=== PATIENT | female | born 1995 | race Two or more races ===

== ENCOUNTER 2020-03-02 23:58 | Inpatient (IN) | payer OTHER, MEDICAID ==
[~2020-03-02] VITALS: Ht 162.6 cm; Wt 62.6 kg
[2020-03-03] VITALS (14 sets, daily range): BP systolic 101–122; BP diastolic 52–81
--- NOTE | 2020-03-03 00:25 | Emergency Room Report ---
History of Present Illness General Chief Complaint: Behavioral Complaint Source: Patient Present Illness HPI Patient is a 24-year-old female brought in by EMS after reported overdose. Patient states that she took approximately 25 100 mg Zoloft tablets. Ingestion occurred approximately 1 hour prior to arrival. She also reports drinking alcohol. Denies any other medications. Patient had been placed on a 5150 hold by [employer]. Allergies: Coded Allergies: No Known Allergies (Unverified , 03/02/20) COVID-19 Screening COVID-19 risk:Contact w/high r: No COVID-19 risk:Travel to affect: No Has patient experienced shahid: No COVID-19 Testing performed TRAIN OPERATOR: No Patient History Past Medical History: see triage record Last Menstrual Period: 02/29/20 Now: No : 1 Para: 0 Reviewed Nursing Documentation: PMH: Agreed; PSxH: Agreed Nursing Documentation-PMH Past Medical History: No Stated History Review of Systems All Other Systems: negative except mentioned in HPI Physical Exam Vital Signs Date Time Temp Pulse Resp B/P (MAP) Pulse Ox O2 Delivery O2 Flow Rate FiO2 03/03/20 00:00 98.2 88 20 122/80 (94) 98 Room Air Sp02 EP Interpretation: reviewed, normal General Appearance: alert/responsive, no apparent distress, GCS 15, non-toxic Head: atraumatic Eyes: PERRL, lids + conjunctiva normal ENT: hearing intact, no angioedema Neck: supple/symm/no masses, no meningismus Respiratory: effort normal, no wheezing, chest symmetrical Cardiovascular: no edema, other - Tachycardia Cardiovascular #2: 2+ carotid (R), 2+ carotid (L), 2+ dorsalis pedis (R), 2+ dorsalis pedis (L) Gastrointestinal: non-tender, no mass, non-distended, no rebound/guarding, normal bowel sounds Musculoskeletal: gait & station normal, normal ROM, strength & tone normal, non -tender Neurologic: normal inspection, CN II-XII intact, oriented x3, sensory intact, normal speech Skin: no rash, well hydrated Lymphatic: normal inspection Procedures Critical Care Time Critical Care Time Patient had a critical medical condition which untreated could potentially result in life or limb threatening injury. Total critical care time excluding procedures approximately 45 minutes. Medical Decision Making Diagnostic Impression: Primary Impression: Medication overdose Additional Impression: Suicidal behavior with attempted self-injury ER Course Patient presented for medication overdose. Differential diagnosis include was not limited to suicide attempt, serotonin syndrome, arrhythmia, electrolyte abnormality, alcohol tox occasion among others. Because of complexity of patient's case laboratory tests and imaging studies were ordered. EKG interpreted by me showed sinus tachycardia with a rate of 108 with QTC of 466. Patient started on IV fluids. Poison control was contacted for assistance with management. She was noted to have some initial tachycardia. Subsequently developed some increased muscle tremors and was given IV magnesium as well as Ativan and cyproheptadine.Poison control recommendations patient will be continued on Ativan intermittently as needed for agitation. She was given IV fluids fluids and did have some slight improvement tachycardia. Dr. Estella Nguyễn was contacted for inpatient management due to panel physician. Patient will be admitted to ICU for further monitoring Labs Test 03/03/20 00:32 03/03/20 00:40 White Blood Count 11.0 K/UL (4.8-10.8) Red Blood Count 4.98 M/UL (4.20-5.40) Hemoglobin 15.6 G/DL (12.0-16.0) Hematocrit 43.6 % (37.0-47.0) Mean Corpuscular Volume 88 FL (80-99) Mean Corpuscular Hemoglobin 31.4 PG (27.0-31.0) Mean Corpuscular Hemoglobin Concent 35.8 G/DL (32.0-36.0) Red Cell Distribution Width 10.4 % (11.6-14.8) Platelet Count 275 K/UL (150-450) Mean Platelet Volume 5.6 FL (6.5-10.1) Neutrophils (%) (Auto) 62.1 % (45.0-75.0) Lymphocytes (%) (Auto) 27.8 % (20.0-45.0) Monocytes (%) (Auto) 8.4 % (1.0-10.0) Eosinophils (%) (Auto) 0.6 % (0.0-3.0) Basophils (%) (Auto) 1.1 % (0.0-2.0) Sodium Level 136 MMOL/L (136-145) Potassium Level 4.2 MMOL/L (3.5-5.1) Chloride Level 101 MMOL/L (98-107) Carbon Dioxide Level 18 MMOL/L (21-32) Anion Gap 17 mmol/L (5-15) Blood Urea Nitrogen 11 mg/dL (7-18) Creatinine 0.7 MG/DL (0.55-1.30) Estimat Glomerular Filtration Rate > 60 mL/min (>60) Glucose Level 129 MG/DL (74-106) Calcium Level 9.0 MG/DL (8.5-10.1) Total Bilirubin 0.5 MG/DL (0.2-1.0) Aspartate Amino Transf (AST/SGOT) 36 U/L (15-37) Alanine Aminotransferase (ALT/SGPT) 19 U/L (12-78) Alkaline Phosphatase 80 U/L (46-116) Total Protein 9.1 G/DL (6.4-8.2) Albumin 4.4 G/DL (3.4-5.0) Globulin 4.7 g/dL Albumin/Globulin Ratio 0.9 (1.0-2.7) Salicylates Level 1.1 ug/mL (2.8-20) Acetaminophen Level < 2 MCG/ML (10-30) Serum Alcohol 33 mg/dL Urine Color Pale yellow Urine Appearance Clear Urine pH 6 (4.5-8.0) Urine Specific [place] 1.010 (1.005-1.035) Urine Protein 1+ (NEGATIVE) Urine Glucose (UA) Negative (NEGATIVE) Urine Ketones Negative (NEGATIVE) Urine Blood 3+ (NEGATIVE) Urine Nitrite Negative (NEGATIVE) Urine Bilirubin Negative (NEGATIVE) Urine Urobilinogen Normal MG/DL (0.0-1.0) Urine Leukocyte Esterase 1+ (NEGATIVE) Urine RBC 2-4 /HPF (0 - 2) Urine WBC 2-4 /HPF (0 - 2) Urine Squamous Epithelial Cells Few /LPF (NONE/OCC) Urine Bacteria Few /HPF (NONE) Urine HCG, Qualitative Negative (NEGATIVE) Urine Opiates Screen Negative (NEGATIVE) Urine Barbiturates Screen Negative (NEGATIVE) Phencyclidine (PCP) Screen Negative (NEGATIVE) Urine Amphetamines Screen Negative (NEGATIVE) Urine Benzodiazepines Screen Negative (NEGATIVE) Urine Cocaine Screen Negative (NEGATIVE) Urine Marijuana (THC) Screen Negative (NEGATIVE) EKG Diagnostic Results Rate: tachycardiac Rhythm: NSR ST Segments: other - QTC 466 Last Vital Signs Date Time Temp Pulse Resp B/P (MAP) Pulse Ox O2 Delivery O2 Flow Rate FiO2 03/03/20 00:00 98.2 88 20 122/80 (94) 98 Room Air Status: unchanged Disposition: ADMITTED INPATIENT Scripts No Active Prescriptions or Reported Meds Referrals: NOT CHOSEN IPA/,REFERRING (PCP) Brigido Villalobos MD March 03, 2020 00:24
--- NOTE | 2020-03-03 00:42 | NUR ---
ED Nurse Note: Pt brought in by LENKA from home, pt placed on a 5150 for taking unknown amount of Zoloft intentionally, pt is A&Ox4, withdrawn, VSS, poison control called, instructed to place pt on environmental monitoring specialist. Suicide precautions taken, pt is visible area away from harmful objects, will continue to monitor
[2020-03-03 00:49] LABS: BASOPHILS % (AUTO) 1.1 % (0.0-2.0); EOSINOPHILS % (AUTO) 0.6 % (0.0-3.0); HEMATOCRIT 43.6 % (37.0-47.0); HEMOGLOBIN 15.6 G/DL (12.0-16.0); LYMPHOCYTES % (AUTO) 27.8 % (20.0-45.0); MEAN CORPUSCULAR VOLUME 88 FL (80-99); MONOCYTES % (AUTO) 8.4 % (1.0-10.0); NEUTROPHILS % (AUTO) 62.1 % (45.0-75.0); PLATELET COUNT 275 K/UL (150-450); RED BLOOD COUNT 4.98 M/UL (4.20-5.40); RED CELL DISTRIBUTION WIDTH 10.4 % (11.6-14.8)
[2020-03-03 00:50] LABS: APPEARANCE,URINE CLEAR; BILIRUBIN, URINE NEGATIVE (NEGATIVE); COLOR,URINE PALE YELLOW; GLUCOSE, URINE (UA) NEGATIVE (NEGATIVE); KETONES,URINE NEGATIVE (NEGATIVE); LEUKOCYTE ESTERASE ,URINE 1+ (NEGATIVE); NITRITE,URINE NEGATIVE (NEGATIVE); PH,URINE 6 (4.5-8.0); PROTEIN,URINE 1+ (NEGATIVE); UROBILINOGEN,URINE NORMAL MG/DL (0.0-1.0)
[2020-03-03 00:59] LABS: ANION GAP 17 mmol/L (5-15); BLOOD UREA NITROGEN 11 mg/dL (7-18); CARBON DIOXIDE 18 MMOL/L (21-32); CHLORIDE 101 MMOL/L (98-107); CREATININE 0.7 MG/DL (0.55-1.30); POTASSIUM 4.2 MMOL/L (3.5-5.1); SODIUM 136 MMOL/L (136-145)
[2020-03-03 01:04] LABS: ALANINE AMINOTRANSFERASE 19 U/L (12-78); ALBUMIN 4.4 G/DL (3.4-5.0); ALBUMIN/GLOBULIN RATIO 0.9 (1.0-2.7); ALKALINE PHOSPHATASE 80 U/L (46-116); ASPARTATE AMINO TRANSFERASE 36 U/L (15-37); BILIRUBIN,TOTAL 0.5 MG/DL (0.2-1.0)
--- NOTE | 2020-03-03 01:27 | NUR ---
ED Nurse Note: Belongings placed in locker 3
[2020-03-03] MEDS ORDERED: LORazepam Inj 2mg/ml 1ml IV ONE (01:30)
[2020-03-03] MEDS: Cyproheptadine HCl 4mg tab ORAL ONE ×2 (01:35→01:45)
[2020-03-03] MEDS: D5 1/2NS w/KCl 20mEq 1,000 ML IV SCH ×3 (03:23→15:57)
--- NOTE | 2020-03-03 03:29 | NUR ---
ED Nurse Note: Patient is sleeping soundly but easily arousable. ERMd informed of increasing heart rate. IV fluids withn potassiumn additive hung, repeat labs to be performed shortly, will continue to monitor for transport to ICU.
--- NOTE | 2020-03-03 05:10 | NUR ---
TRANSFER TO FLOOR: Patient transferred to as ordered, per Dr Tobar. Report given to HERACLIO Juan. Belongings and medications given to . Family and or S/O informed of transfer.
--- NOTE | 2020-03-03 05:35 | NUR ---
NURSE NOTES: Received report from HERACLIO Kennedy at 0427. patient arrived to ICU via gurney. patient awake alert oriented x4. respirations even and unlabored on room air oxygen saturation 98%. right Wrist # 20 and left Forearm #20 clean, intact, and patent. patient states lower abdomen cramping pain due to menstruation. patient stated self inflicted skin lacerations on right wrist and left thigh, reddened and scabbed. patient declined to answer suicidal ideation at this time. patient belongings including iphone 8 and spud sorter at bedside. paged Dr. Tobar for admitting orders. message left. awaiting call back.
--- NOTE | 2020-03-03 06:00 | NUR ---
NURSE NOTES: paged Dr. Tobar for a second time for admitting orders. message left. awaiting call back.
--- NOTE | 2020-03-03 06:41 | NUR ---
NURSE NOTES: Paged Dr. Tobar for third time regarding admitting orders. message left. awaiting call back.
--- NOTE | 2020-03-03 07:10 | NUR ---
NURSE NOTES: Received bedside report from HERACLIO Nicole. Patient is asleep in bed, easily arousable to verbal stimuli. Patient is alert, oriented to name, place, time, and purpose. Patient is on room air, saturating 97%, no respiratory distress noted at this time. Patient is on cont. cardiac cath lab manager showing sinus tachycardia with HR of 146. Patient has a peripheral IV on right wrist 20g saline lock; and left forearm 20g infusing 1/2 NS with 20mEq of KCL. Denies pain at this time. Patient has multiple superficial lacerations on right wrist and left thigh, otherwise no open/pressure wounds. Patient denies suicidal ideation at this time. Safety precautions in place, bed is locked, alarmed, and in lowest position, side rails up x2, and call light left within reach. Instructed to call for assistance, verbalized understanding. Patient is in visible area from nurse's station for close monitoring, no sharps/harmful objects within reach. Still awaiting for Dr Tobar's call back for admitting orders. Will continue to monitor patient.
--- NOTE | 2020-03-03 07:13 | NUR ---
HAND-OFF: Report given to HERACLIO Bermudez.
--- NOTE | 2020-03-03 07:39 | NUR ---
NURSE NOTES: Contacted Dr Tobar for admitting orders. Awaiting for call back/response.
[2020-03-03 09:05] LABS: HEMATOCRIT 36.6 % (37.0-47.0); HEMOGLOBIN 13.2 G/DL (12.0-16.0); MEAN CORPUSCULAR VOLUME 89 FL (80-99); PLATELET COUNT 226 K/UL (150-450); RED CELL DISTRIBUTION WIDTH 10.3 % (11.6-14.8)
--- NOTE | 2020-03-03 09:15 | NUR ---
NURSE NOTES: Dr Sands present in the unit; made rounds, seen patient, and updated on patient's condition. No new verbal orders received at this time, pending lab results. Patient is awake at this time, denies pain/discomfort. Patient denies suicidal ideations. IV on right wrist intact, IV on left FA 20g intact, infusing 1/2 NS with 20mEq of potassium. Patient remains tachycardic on the monitor, HR 136. Temperature 99.4. Offered patient breakfast, states she is not hungry at this time. Food on the bedside table. Patient remains on room air, no distress noted at this time. Safety precautions observed, bed locked, alarmed, and in lowest position, side rails up x3, and call light within reach. No harmful/sharp objects within reach. All needs attended to. Will continue to monitor.
[2020-03-03 09:17] LABS: ANION GAP 17 mmol/L (5-15); BLOOD UREA NITROGEN 7 mg/dL (7-18); CALCIUM 7.7 MG/DL (8.5-10.1); CARBON DIOXIDE 18 MMOL/L (21-32); CHLORIDE 104 MMOL/L (98-107); POTASSIUM 4.1 MMOL/L (3.5-5.1); SODIUM 138 MMOL/L (136-145)
[2020-03-03 09:30] LABS: ALANINE AMINOTRANSFERASE 15 U/L (12-78); ALBUMIN 3.5 G/DL (3.4-5.0); ALKALINE PHOSPHATASE 58 U/L (46-116); ASPARTATE AMINO TRANSFERASE 18 U/L (15-37); BILIRUBIN,TOTAL 0.4 MG/DL (0.2-1.0); PHOSPHORUS 2.3 MG/DL (2.5-4.9)
--- NOTE | 2020-03-03 09:30 | NUR ---
NURSE NOTES: ball worker at bedside.
--- NOTE | 2020-03-03 09:44 | NUR ---
NURSE NOTES: Called and spoke with Dr Lane per Dr Tobar's instruction to get Ativan order. No new orders received from Dr Lane at this time; stated he wants to see the patient/assess first. Patient remains awake, alert, and oriented x4. No s/s of distress at this time. Will continue to monitor.
--- NOTE | 2020-03-03 09:55 | Consultation ---
Consult Note Consult Note I am asked to evaluate the patient at the request of Dr. Tobar. Patient seen in intensive care unit room D at 9:15 AM. Discussed with HERACLIO Bermudez. Patient is 24-year-old female who was brought in by EMS after reported overdose. On questioning the patient in ICU she states that she took 25 pills of Zoloft 100 mg and at the same time patient drank some vodka however 15 minutes later she vomited but she does not know the pills that she took was in her vomitus or not. Patient had been placed on 5150 hold by [employer] On examination patient is alert and oriented claims to be sleepy but she appears to be alert Pulse is 1 30-1 40 regular blood pressure 110 systolic respiratory rate 18 patient is afebrile Not in any distress Not icteric Normocephalic Lung clear Heart tachycardic Abdomen soft No edema Laboratory results reviewed . Assessment/Plan Medication overdose Suicidal behavior with attempted self injury Plan Vigorous hydration Monitor electrolytes Sinus tachycardia should be addressed by application infrastructure engineer Discussed with HERACLIO Continue per consultants Babak Sands MD March 03, 2020 09:55
--- NOTE | 2020-03-03 10:08 | NUR ---
NURSE NOTES: Assisted patient to bedside commode, patient noted to have steady gait. No dizziness/weakness noted. Patient safely assisted back to bed after toileting. Patient voided. Patient denies pain/distress at this time. Will continue to monitor.
--- NOTE | 2020-03-03 10:32 | NUR ---
NURSE NOTES: Dr Michel present in the unit, seen patient, new orders received. EKG done, results showed to Dr Michel. Ok to transfer patient to med/surg with sitter. Will enter orders and will carry out.
--- NOTE | 2020-03-03 11:25 | NUR ---
LOG SKIDDER NOTE SW met w/ pt to assess suicide/abuse/neglect. Pt presents as A&O 4x and depressed. Pt resides alone at [address] [place] [address], [place] [address]. Pt is single, never , unemployed and has no children. Pt currently denies SI but admits 5150 incident. Per pt, this is the first SA. PT denies abuse/neglect/any physical altercation. Pt reports her current stressors are some problems w/ boyfriend. PT has hx of Depression diagnosed in 2018. Pt participated outpatient [facility] program a year ago. Pt currently does not receive outpatient [facility]. Pt is wiling to go to outpatient services upon DC. This SW will schedule the appt when DC date is determined and will continue to assess SI. Psych Consult to F/U. Emergency contacts: Carolee (sister) [phone] and Carlos Mora (boyfriend) [phone]
--- NOTE | 2020-03-03 11:43 | NUR ---
NURSE NOTES: Dr De present at bedside, seen patient with new orders received. Will enter and will carry out. Patient remains aox4, in no distress. Denies SI at this time. Assisted patient to commode. Will continue to monitor patient.
--- NOTE | 2020-03-03 11:52 | Cardiac Electrophysiology PN ---
Subjective Subjective [id number] Objective Last 24 Hour Vital Signs Date Time Temp Pulse Resp B/P (MAP) Pulse Ox O2 Delivery O2 Flow Rate FiO2 03/03/20 10:00 157 23 113/59 (77) 97 03/03/20 09:00 139 21 119/52 (74) 97 03/03/20 08:00 Room Air 03/03/20 08:00 99.4 143 18 115/55 (75) 97 03/03/20 08:00 143 03/03/20 07:00 147 20 107/57 (74) 96 03/03/20 06:00 99.5 143 19 112/56 (74) 98 03/03/20 05:36 Room Air 03/03/20 05:10 98.2 143 30 119/82 99 Room Air 03/03/20 04:00 98.2 143 30 119/81 99 Room Air 03/03/20 02:19 98.0 129 23 122/80 99 Room Air 03/03/20 00:38 98.2 88 20 122/80 98 Room Air 03/03/20 00:38 88 20 Room Air 03/03/20 00:00 98.2 88 20 122/80 (94) 98 Room Air Intake and Output 03/02/20 03/03/20 19:00 07:00 Intake Total 200 ml Balance 200 ml IV Total 200 ml # Voids 1 Laboratory Tests Test 03/03/20 00:32 03/03/20 00:40 03/03/20 08:44 03/03/20 08:45 White Blood Count 11.0 K/UL (4.8-10.8) H 14.0 K/UL (4.8-10.8) H Red Blood Count 4.98 M/UL (4.20-5.40) 4.10 M/UL (4.20-5.40) L Hemoglobin 15.6 G/DL (12.0-16.0) 13.2 G/DL (12.0-16.0) Hematocrit 43.6 % (37.0-47.0) 36.6 % (37.0-47.0) L Mean Corpuscular Volume 88 FL (80-99) 89 FL (80-99) Mean Corpuscular Hemoglobin 31.4 PG (27.0-31.0) H 32.2 PG (27.0-31.0) H Mean Corpuscular Hemoglobin Concent 35.8 G/DL (32.0-36.0) 36.0 G/DL (32.0-36.0) Red Cell Distribution Width 10.4 % (11.6-14.8) L 10.3 % (11.6-14.8) L Platelet Count 275 K/UL (150-450) 226 K/UL (150-450) Mean Platelet Volume 5.6 FL (6.5-10.1) L 5.3 FL (6.5-10.1) L Neutrophils (%) (Auto) 62.1 % (45.0-75.0) % (45.0-75.0) Lymphocytes (%) (Auto) 27.8 % (20.0-45.0) % (20.0-45.0) Monocytes (%) (Auto) 8.4 % (1.0-10.0) % (1.0-10.0) Eosinophils (%) (Auto) 0.6 % (0.0-3.0) % (0.0-3.0) Basophils (%) (Auto) 1.1 % (0.0-2.0) % (0.0-2.0) Sodium Level 136 MMOL/L (136-145) 138 MMOL/L (136-145) Potassium Level 4.2 MMOL/L (3.5-5.1) 4.1 MMOL/L (3.5-5.1) Chloride Level 101 MMOL/L (98-107) 104 MMOL/L (98-107) Carbon Dioxide Level 18 MMOL/L (21-32) L 18 MMOL/L (21-32) L Anion Gap 17 mmol/L (5-15) H 17 mmol/L (5-15) H Blood Urea Nitrogen 11 mg/dL (7-18) 7 mg/dL (7-18) Creatinine 0.7 MG/DL (0.55-1.30) 1.0 MG/DL (0.55-1.30) Estimat Glomerular Filtration Rate > 60 mL/min (>60) > 60 mL/min (>60) Glucose Level 129 MG/DL (74-106) H 166 MG/DL (74-106) H Calcium Level 9.0 MG/DL (8.5-10.1) 7.7 MG/DL (8.5-10.1) L Total Bilirubin 0.5 MG/DL (0.2-1.0) 0.4 MG/DL (0.2-1.0) Aspartate Amino Transf (AST/SGOT) 36 U/L (15-37) 18 U/L (15-37) Alanine Aminotransferase (ALT/SGPT) 19 U/L (12-78) 15 U/L (12-78) Alkaline Phosphatase 80 U/L (46-116) 58 U/L (46-116) Total Protein 9.1 G/DL (6.4-8.2) H 7.0 G/DL (6.4-8.2) Albumin 4.4 G/DL (3.4-5.0) 3.5 G/DL (3.4-5.0) Globulin 4.7 g/dL 3.5 g/dL Albumin/Globulin Ratio 0.9 (1.0-2.7) L 1.0 (1.0-2.7) Salicylates Level 1.1 ug/mL (2.8-20) L Acetaminophen Level < 2 MCG/ML (10-30) L Serum Alcohol 33 mg/dL Urine Color Pale yellow Urine Appearance Clear Urine pH 6 (4.5-8.0) Urine Specific [place] 1.010 (1.005-1.035) Urine Protein 1+ (NEGATIVE) H Urine Glucose (UA) Negative (NEGATIVE) Urine Ketones Negative (NEGATIVE) Urine Blood 3+ (NEGATIVE) H Urine Nitrite Negative (NEGATIVE) Urine Bilirubin Negative (NEGATIVE) Urine Urobilinogen Normal MG/DL (0.0-1.0) Urine Leukocyte Esterase 1+ (NEGATIVE) H Urine RBC 2-4 /HPF (0 - 2) H Urine WBC 2-4 /HPF (0 - 2) Urine Squamous Epithelial Cells Few /LPF (NONE/OCC) Urine Bacteria Few /HPF (NONE) Urine HCG, Qualitative Negative (NEGATIVE) Urine Opiates Screen Negative (NEGATIVE) Urine Barbiturates Screen Negative (NEGATIVE) Phencyclidine (PCP) Screen Negative (NEGATIVE) Urine Amphetamines Screen Negative (NEGATIVE) Urine Benzodiazepines Screen Negative (NEGATIVE) Urine Cocaine Screen Negative (NEGATIVE) Urine Marijuana (THC) Screen Negative (NEGATIVE) Arterial Blood pH 7.381 (7.350-7.450) Arterial Blood Partial Pressure CO2 24.7 mmHg (35.0-45.0) *L Arterial Blood Partial Pressure O2 124.2 mmHg (75.0-100.0) H Arterial Blood HCO3 14.3 mmol/L (22.0-26.0) *L Arterial Blood Oxygen Saturation 98.1 % (95-100) Arterial Blood Base Excess -8.9 (-2-2) L Joon Test Positive Differential Total Cells Counted 100 Neutrophils % (Manual) 85 % (45-75) H Lymphocytes % (Manual) 8 % (20-45) L Monocytes % (Manual) 7 % (1-10) Eosinophils % (Manual) 0 % (0-3) Basophils % (Manual) 0 % (0-2) Band Neutrophils 0 % (0-8) Platelet Estimate Adequate Platelet Morphology Normal Red Blood Cell Morphology Normal Uric Acid 2.7 MG/DL (2.6-7.2) Phosphorus Level 2.3 MG/DL (2.5-4.9) L Magnesium Level 1.6 MG/DL (1.8-2.4) L C-Reactive Protein, Quantitative < 0.4 mg/dL (0.00-0.90) Thyroid Stimulating Hormone (TSH) 0.441 uiU/mL (0.358-3.740) Jose De MD March 03, 2020 11:52
[2020-03-03] MEDS ORDERED: Docusate 100mg cap ORAL SCH (13:00)
[2020-03-03] MEDS ORDERED: Phospha 250 Neutral tab ORAL SCH (13:00)
[2020-03-03] MEDS ORDERED: D5 1/2NS w/KCl 20mEq 1,000 ML IV SCH (14:00)
--- NOTE | 2020-03-03 14:00 | NUR ---
NURSE NOTES: Patient called for assistance to bedside commode. No BM at this time, patient voided. Assisted patient back to bed safely. IV on left forearm intact and patent, Magnesium infusing and D5 1/5 NS with 20mEq infusing at 100ml/hr. Patient remains on room air, no distress at this time. Patient denies SI. Safety precautions in place. No sharps/harmful objects within reach. Bed is locked, alarmed, and in lowest position, side rails up x3, and call light left within reach. Will continue to monitor.
--- NOTE | 2020-03-03 14:49 | NUR ---
CASE MANAGEMENT: REVIEW 24 YEAR OLD FEMALE CC: INGESTING UNKNOWN AMOUNT OF ZOLOFT SI: DRUG OVERDOSE . SUICIDAL BEHAVIOR WITH ATTEMPTED SELF INJURY T 98.2 HR 129 RR 23 BP 122/80 SAT 98% ROOM AIR TOX: SALICYLATES 1.1 ACETAMINOPHEN <2 SERUM ALCOHOL 33 IS: NS IVF BOLUS X1 CYPROHEPTADINE PO X1 MAG SULFATE IV X1 ATIVAN IV X1 1:1 SITTER PATIENT ADMITTED TO ICU 03/03/2020 DCP: PATIENT IS FROM HOME
--- NOTE | 2020-03-03 14:57 | NUR ---
INSURANCE ALL CLINICALS AND REVIEWS FAXED TO MATEO BRUNER [phone] FAX [phone] Addendum: 03/03/20 at 1612 by ADI JUDGE *-* INSURANCE *-* ALL CLINICALS AND REVIEWS HAVE BEEN FAXED TO: [facility] Ref#[id number] #[phone] fax#[phone]
--- NOTE | 2020-03-03 15:00 | NUR ---
TRANSFER TO FLOOR: Patient transferred to med/surg room 321-2, per Dr Michel. Shimon Bernardo CNA at bedside. Report given to HERACLIO Houston. Belongings remained at bedside, medications given to HERACLIO Houston. Endorsed plan of care.
--- NOTE | 2020-03-03 15:09 | NUR ---
NURSE NOTES: Patient arrived to unit at 1500 via bed, transferred from ICU. Patient is awake and oriented, ambulatory with steady gait. Belongings checked at bedside. IV's intact, patent, running IVF and Mag per order. Patient's refusing SCD's. Patient on 5150 hold, hold is in chart. Shimon Bernardo at bedside. Patient updated on plan of care. Side rails upx2, bed low and locked, call light within reach. Addendum: 03/03/20 at 1731 by Rosemarie Colindres RN NURSE NOTES: Edit: Patient is not on 5150 hold.
--- NOTE | 2020-03-03 15:10 | NUR ---
NURSE NOTES: No skin issues noted on arrival to unit except for multiple lacerations to right wrist and forearm. No signs of infection or acute bleeding noted.
--- NOTE | 2020-03-03 15:15 | NUR ---
*-* INSURANCE *-* UPDATED CLINICALS HAVE BEEN FAXED TO: [facility] Ref#[id number] #[phone] fax#[phone] & KANNAN MCMILLAN CM:DENVER Jamison: [phone] Addendum: 03/04/20 at 1541 by ADI JUDGE CM ALL CLINICALS HAVE BEEN RE-FAXED IT DEPARTMENT CANCELLED ALL FAXES CUED IN FAX MACHINE
[2020-03-03] MEDS: Docusate 100mg cap ORAL SCH (17:27)
[2020-03-03] MEDS: Phospha 250 Neutral tab ORAL SCH (17:27)
--- NOTE | 2020-03-03 18:00 | Consultation ---
DATE OF CONSULTATION: 03/03/2020 PULMONARY CONSULTATION/ICU CONSULTATION HISTORY OF PRESENT ILLNESS: This is a 24-year-old female who admitted taking 25 tablets of 100 mg each of Zoloft. She also reportedly drinking alcohol. She was placed on 5150 and placed in the ER and then in ICU. Currently, she is awake and responsive. She has had breakfast. She does not show any signs of respiratory distress. She is awake and comfortable, unable to provide a clear history. She states she was unhappy and she took the pills. She states she is no longer suicidal. PAST MEDICAL HISTORY: Depression. ALLERGIES: None. HOME MEDICATIONS: Zoloft. REVIEW OF SYSTEMS: Denies any headaches, hematemesis, melena, hematochezia, night sweats, or weight loss. PHYSICAL EXAMINATION: GENERAL: Reveals a female. VITAL SIGNS: Blood pressure is 113/50, heart rate 126, respirations are 20, afebrile, O2 saturation 97% room air. HEENT: Unremarkable. LUNGS: Clear breath sounds bilaterally. ABDOMEN: Soft. EXTREMITIES: There is no edema. LABORATORY DATA: Lab testing shows white count [id number], otherwise normal CBC and BMP. Toxicology positive for alcohol. Urinalysis negative. ABG shows pH 7.38, pCO2 24, pO2 124. IMPRESSION: 1. Drug overdose. 2. Suicidal ideation, now resolved. 3. Leukocytosis. DISCUSSION: The patient is doing well clinically. She has sinus tachycardia on EKG. We will hydrate, keep bedside sitter, await psych consultation. We will transfer to med/surg with sitter. Kimani Michel M.D. DR: Soren JOB#: [id number] CC:
--- NOTE | 2020-03-03 19:45 | NUR ---
HAND-OFF: Report given to Natalie PULLIAM.
--- NOTE | 2020-03-03 19:46 | NUR ---
NURSE NOTES: Received report & pt from HERACLIO Houston. Pt lying in bed, a&ox4, in room air. No s/s of acute distress & no c/o pain. IV site intact with IVF running as ordered. Shimon Chow at bedside. Plan of care discussed.
[2020-03-03] MEDS ORDERED: LORazepam Inj 2mg/ml 1ml IV PRN (20:15)
[2020-03-03] MEDS ORDERED: Metoprolol Tartrate 12.5mg TAB ORAL SCH (21:00)
[2020-03-03] MEDS: Metoprolol Tartrate 12.5mg TAB ORAL SCH (21:48)
--- NOTE | 2020-03-03 22:00 | Consultation ---
DATE OF CONSULTATION: 03/03/2020 CARDIOLOGY CONSULTATION CONSULTING PHYSICIAN: Jose De MD REFERRING PHYSICIAN: Estella Tobar MD REASON FOR CONSULTATION: Tachycardia. HISTORY OF PRESENT ILLNESS: The patient is a 24-year-old lady who has a history of depression, was brought in by paramedics after overdose of 25 pills of Zoloft at 100 mg. The patient also drank some vodka; however, 15 minutes later she vomited and does not remember if the pills were in the vomitus or not. The patient was put on 5150 hold by [employer]. The patient was at 130 to 140s and was admitted to intensive care unit. At the time of my evaluation, the patient was still tachycardic, but heart rate in the 110 to 120s, and denies any chest pain or shortness of breath. She states that she has planned to commit suicide for a long time. REVIEW OF SYSTEMS: Review of systems was negative other than what is mentioned in the history of present illness. PAST MEDICAL HISTORY: As mentioned above. FAMILY HISTORY: Noncontributory. SOCIAL HISTORY: She lives at home. Denies doing drugs alcohol. PHYSICAL EXAMINATION: VITAL SIGNS: Show blood pressure of 109/54, pulse was 157, currently 110, respirations 18, and she is afebrile. HEAD AND NECK: Shows no JVD. LUNGS: Clear. CARDIOVASCULAR: Shows tachycardic, S1 and S2, with no gallop or murmur. ABDOMEN: Soft. EXTREMITIES: No pitting edema. LABORATORY DATA: Labs show white count of 14, hemoglobin 13.2, hematocrit 36, and platelet count is 226. Sodium 138, potassium 4.1, BUN of 7, creatinine 1, and glucose of 166. Urine toxicology screen was negative. ASSESSMENT AND PLAN: 1. Tachycardia due to sinus tachycardia with no evidence of atrial fibrillation. Heart rate was up to 160s. We will get an echocardiogram. We will check a thyroid function test for further evaluation, but it is likely due to drug overdose. 2. Status post drug overdose. Further evaluation by Psychiatry. The patient was off 5150, followed by Dr. Tobar. 3. History of depression. Thank you very much for allowing me to participate in the care of this patient. Please do not hesitate to contact me for any questions regarding my evaluation. Jose De M.D. DR: Js JOB#: [id number] CC:
[2020-03-04] VITALS: BP 105/66
[2020-03-04] MEDS: D5 1/2NS w/KCl 20mEq 1,000 ML IV SCH ×2 (00:32→11:35)
--- NOTE | 2020-03-04 01:00 | History and Physical Report ---
DATE OF ADMISSION: 03/03/2020 HISTORY OF PRESENT ILLNESS: Basically, the patient came in because of overdosing the medications. The patient basically took Zoloft. The patient approximately took 25 of 100 mg Zoloft. The patient also had some borderline tachycardia and acidosis, was given Ativan, magnesium, and cyproheptadine for the possible serotonin syndrome and was admitted to intensive care unit. The patient was essentially symptom-free, who was stable. Upon admission, did not complain of anything, did not have any headaches, was alert and oriented. The patient was placed on hold by the [employer]. The patient is admitted for monitoring. Again, the patient did not have any significant symptoms, was asymptomatic with normal vital signs. Upon admission to the ICU, the patient also was alert and oriented. The patient is fairly young as well. PAST MEDICAL HISTORY: GERD and depression. PAST SURGICAL HISTORY: None. MEDICATIONS: Zoloft. FAMILY HISTORY: Noncontributory. ALLERGIES: None. SOCIAL HISTORY: Denies history of smoking. Does drink alcohol. Denies history of drug abuse. REVIEW OF SYSTEMS: HEENT: Denies headaches. PULMONARY: Denies shortness of breath and cough. CARDIOVASCULAR: Denies chest pain. GASTROINTESTINAL: Denies nausea, vomiting, or diarrhea. EXTREMITIES: Denies pain. CENTRAL NERVOUS SYSTEM: Denies change in speech pattern. PHYSICAL EXAMINATION: VITAL SIGNS: Temperature is 98.2, pulse is 124, blood pressure 118/63. HEENT: PERRLA. CHEST: Clear to auscultation. CARDIOVASCULAR: Tachycardic. No murmurs, rubs, or sounds. ABDOMEN: Soft, nontender. EXTREMITIES: No edema. Reflexes equal on both sides. Moves all four extremities. NEUROLOGIC: Alert and oriented. LABORATORY DATA: WBC of 11, hemoglobin 15.6, platelets 275. Sodium 136, potassium 4.2, CO2 of 18, BUN of 11, creatinine 0.7. Glucose 129. AST of 36, ALT of 119, alkaline phosphatase of 80. EKG is normal. ASSESSMENT AND PLAN: Status post overdose of Zoloft, rule out serotonin syndrome. The patient admitted to ICU. The patient also has mild acidosis and WBC of 11, asymptomatic. Stable, oriented and alert. Have consulted Dr. Shah, Dr. Sands, Dr. Lane, Dr. Lazaro, and Dr. De to help with the management of this patient in the intensive care unit. Decision will be made by Dr. Shah. Estella Tobar M.D. DR: NAVIN JOB#: [id number] CC:
--- NOTE | 2020-03-04 03:00 | Consultation ---
DATE OF CONSULTATION: 03/04/2020 This is a 24-year-old female with a history of depression, borderline personality. The patient was admitted due to suicide. She was admitted to ICU and when she was in the ambulance, she threw up. She stated she took 25 capsules of Zoloft each 100 mg. The patient stated that due to COVID-19, she has been in quarantine and has been feeling depressed and cutting self. On the prior day to the alleged incident, the patient went to her aunt's house under the family conflicts as she was upset about her brother and her [id number]. The patient attempted suicide and she called her boyfriend and the boyfriend consequently called [employer] placed the patient on a hold. The patient has several clots on her right arm and on her inner thighs. The patient stated she has for years. She also has old scars on her left forearm. The patient currently is depressed, does not have any suicidal ideation. During the examination, the patient did not endorse any symptoms consistent with symptoms. No jerky movements. is within normal limits. The patient has been stable. The patient is on hospital and does not have any thoughts of ending her life. She is not endorsing any anxiety or suicidal ideation. The patient also stated that she has been drinking vodka; however, it is minimal. PAST PSYCHIATRIC HISTORY: She denies any psychiatric hospitalization. She stated that she has to cut herself, however, did not have any in the past. She does not have a psychiatrist currently. She is only on Zoloft. PAST MEDICAL HISTORY: Nonsignificant. ALLERGIES: No known drug allergies. SUBSTANCE ABUSE HISTORY: No known history of illicit drug or alcohol. The patient is and she is having "donation staff". The patient lives at home and has a boyfriend, but she denies any history of abuse. MENTAL STATUS EXAMINATION: The patient is alert, oriented to time, self, place, situation, and date. Mood is dysphoric. Affect is constricted, congruent with mood. Thought process is concrete. Thought content, no suicidal or homicidal ideation noted. No psychotic symptoms. Insight and judgment fair. Cognition intact. ASSESSMENT: AXIS I: Major depressive disorder. AXIS II: Borderline personality. AXIS III: Status post overdose. AXIS IV: Moderate. AXIS V: 50. PLAN: 1. The patient is not in any danger to self or others. 2. No started at this time. 3. The patient will be followed with outpatient psychiatrist. 4. Discussed with the nurse. Cristal Shah M.D. DR: RUPAL JOB#: [id number] CC:
[2020-03-04 04:00] VITALS: BP 121/76
[2020-03-04 06:00] VITALS: BP 121/76
[2020-03-04 06:56] LABS: BASOPHILS % (AUTO) 0.7 % (0.0-2.0); EOSINOPHILS % (AUTO) 0.2 % (0.0-3.0); HEMOGLOBIN 13.7 G/DL (12.0-16.0); LYMPHOCYTES % (AUTO) 14.7 % (20.0-45.0); MEAN CORPUSCULAR VOLUME 89 FL (80-99); MONOCYTES % (AUTO) 8.7 % (1.0-10.0); NEUTROPHILS % (AUTO) 75.7 % (45.0-75.0); PLATELET COUNT 245 K/UL (150-450); RED BLOOD COUNT 4.24 M/UL (4.20-5.40); RED CELL DISTRIBUTION WIDTH 10.6 % (11.6-14.8); WHITE BLOOD COUNT 9.4 K/UL (4.8-10.8)
--- NOTE | 2020-03-04 07:30 | NUR ---
HAND-OFF: Report given to HERACLIO Bearden. Pt in stable condition.
[2020-03-04 07:33] LABS: PHOSPHORUS 2.4 MG/DL (2.5-4.9)
[2020-03-04 07:40] LABS: ALANINE AMINOTRANSFERASE 20 U/L (12-78); ALBUMIN 3.9 G/DL (3.4-5.0); ANION GAP 11 mmol/L (5-15); ASPARTATE AMINO TRANSFERASE 19 U/L (15-37); BILIRUBIN,TOTAL 0.6 MG/DL (0.2-1.0); BLOOD UREA NITROGEN 4 mg/dL (7-18); CALCIUM 8.7 MG/DL (8.5-10.1); CARBON DIOXIDE 22 MMOL/L (21-32); CHLORIDE 105 MMOL/L (98-107); CREATININE 0.6 MG/DL (0.55-1.30); POTASSIUM 4.1 MMOL/L (3.5-5.1); SODIUM 138 MMOL/L (136-145)
--- NOTE | 2020-03-04 07:45 | NUR ---
NURSE NOTES: Received report & pt from HERACLIO Estrada. Round was made. Pt awake in bed, a&ox4, in room air. No s/s of acute distress & no c/o pain. IV site intact with IVF running as ordered. Plan of care discussed.
[2020-03-04 07:52] LABS: ALKALINE PHOSPHATASE 65 U/L (46-116)
[2020-03-04 08:00] VITALS: BP 122/70
[2020-03-04] MEDS: Docusate 100mg cap ORAL SCH ×2 (08:26→13:15)
[2020-03-04] MEDS: Phospha 250 Neutral tab ORAL SCH ×2 (08:27→13:15)
[2020-03-04] MEDS: Metoprolol Tartrate 12.5mg TAB ORAL SCH (08:28)
--- NOTE | 2020-03-04 11:20 | Pulmonology Progress Note ---
Subjective Interval Events: None new Constitutional: Reports: no symptoms HEENT: Repors: no symptoms Respiratory: Reports: no symptoms Cardiovascular: Reports: no symptoms Gastrointestinal/Abdominal: Reports: no symptoms Genitourinary: Reports: no symptoms Allergies: Coded Allergies: No Known Allergies (Unverified , 03/02/20) Objective Last 24 Hour Vital Signs Date Time Temp Pulse Resp B/P (MAP) Pulse Ox O2 Delivery O2 Flow Rate FiO2 03/04/20 08:28 87 122/70 03/04/20 08:00 99.2 95 20 122/70 (87) 99 03/04/20 06:00 99.4 87 20 121/76 (91) 95 03/04/20 00:00 99.8 83 20 105/66 (79) 96 03/03/20 21:48 97 116/70 03/03/20 20:00 98.9 102 16 116/70 (85) 97 03/03/20 16:00 98.9 113 16 101/64 (76) 100 03/03/20 14:00 124 17 114/60 (78) 97 03/03/20 13:00 141 18 118/57 (77) 96 03/03/20 12:00 Room Air 03/03/20 12:00 98.2 124 23 118/63 (81) 95 Intake and Output 03/03/20 03/04/20 19:00 07:00 Intake Total 2150 ml 1560 ml Balance 2150 ml 1560 ml Intake Oral 1050 ml 360 ml IV Total 1100 ml 1200 ml # Voids 9 7 General Appearance: no acute distress HEENT: normocephalic Respiratory: chest wall non-tender Cardiovascular: normal peripheral pulses Abdomen: normal bowel sounds Laboratory Tests 03/04/20 05:50: White Blood Count 9.4, Red Blood Count 4.24, Hemoglobin 13.7, Hematocrit 38.0, Mean Corpuscular Volume 89, Mean Corpuscular Hemoglobin 32.3H, Mean Corpuscular Hemoglobin Concent 36.1H, Red Cell Distribution Width 10.6L, Platelet Count 245 , Mean Platelet Volume 5.6L, Neutrophils (%) (Auto) 75.7H, Lymphocytes (%) (Auto ) 14.7L, Monocytes (%) (Auto) 8.7, Eosinophils (%) (Auto) 0.2, Basophils (%) ( Auto) 0.7, Sodium Level 138, Potassium Level 4.1, Chloride Level 105, Carbon Dioxide Level 22, Anion Gap 11, Blood Urea Nitrogen 4L, Creatinine 0.6, Estimat Glomerular Filtration Rate > 60, Glucose Level 135H, Calcium Level 8.7, Phosphorus Level 2.4L, Magnesium Level 2.1, Total Bilirubin 0.6, Aspartate Amino Transf (AST/SGOT) 19, Alanine Aminotransferase (ALT/SGPT) 20, Alkaline Phosphatase 65, C-Reactive Protein, Quantitative < 0.4, Pro-B-Type Natriuretic Peptide 171H, Total Protein 7.7, Albumin 3.9, Globulin 3.8, Albumin/Globulin Ratio 1.0, Thyroid Stimulating Hormone (TSH) 0.669, Free Thyroxine 1.11 Current Medications Medications (Trade) Dose Ordered Sig/Facundo Route PRN Reason Start Time Stop Time Status Last Admin Dose Admin Acetaminophen (Tylenol) 650 mg Q4H PRN ORAL Temp >100.5 03/03/20 15:13 04/02/20 15:12 Dextrose/ Electrolytes 1,000 ml @ 100 mls/hr Q10H IV 03/03/20 15:13 04/02/20 15:12 03/04/20 00:32 Docusate Sodium (Colace) 100 mg THREE TIMES A DAY ORAL 03/03/20 18:00 04/02/20 12:59 03/04/20 08:26 Lorazepam (Ativan 2mg/ml 1ml) 2 mg Q1H PRN IV For Seizures 03/03/20 20:15 03/10/20 20:14 Metoprolol Tartrate (Lopressor) 12.5 mg Q12HR ORAL 03/03/20 21:00 06/01/20 20:59 03/04/20 08:28 Pantoprazole (Protonix) 40 mg EVERY 12 HOURS ORAL 03/03/20 21:00 04/02/20 20:59 03/04/20 08:27 Phosphorus (Phospha 250 Neutral) 500 mg THREE TIMES A DAY ORAL 03/03/20 18:00 04/02/20 12:59 03/04/20 08:27 Assessment/Plan Assessment/Plan IMPRESSION: 1. Drug overdose. 2. Suicidal ideation. 3. Leukocytosis. DISCUSSION: The patient is doing well clinically. Will sign off Diana Metcalf Omar Syed MD March 04, 2020 11:20
[2020-03-04 12:00] VITALS: BP 123/78
--- NOTE | 2020-03-04 12:15 | Nephrology Progress Note ---
Assessment/Plan Problem List: (1) Tachycardia (2) Electrolyte imbalance (3) Medication overdose Assessment Medication overdose Suicidal behavior with attempted self injury Plan Vigorous hydration done, at this point will DC IV Monitor electrolytes indicates normal electrolytes Sinus tachycardia resolved on low-dose Lopressor Discussed with RN Continue per consultants Not much to add from renal standpoint of view Subjective ROS Limited/Unobtainable: No Objective Objective Last 24 Hour Vital Signs Date Time Temp Pulse Resp B/P (MAP) Pulse Ox O2 Delivery O2 Flow Rate FiO2 03/04/20 08:28 87 122/70 03/04/20 08:00 99.2 95 20 122/70 (87) 99 03/04/20 06:00 99.4 87 20 121/76 (91) 95 03/04/20 00:00 99.8 83 20 105/66 (79) 96 03/03/20 21:48 97 116/70 03/03/20 20:00 98.9 102 16 116/70 (85) 97 03/03/20 16:00 98.9 113 16 101/64 (76) 100 03/03/20 14:00 124 17 114/60 (78) 97 03/03/20 13:00 141 18 118/57 (77) 96 Intake and Output 03/03/20 03/04/20 19:00 07:00 Intake Total 2150 ml 1560 ml Balance 2150 ml 1560 ml Intake Oral 1050 ml 360 ml IV Total 1100 ml 1200 ml # Voids 9 7 Current Medications Medications (Trade) Dose Ordered Sig/Facundo Route PRN Reason Start Time Stop Time Status Last Admin Dose Admin Acetaminophen (Tylenol) 650 mg Q4H PRN ORAL Temp >100.5 03/03/20 15:13 04/02/20 15:12 Dextrose/ Electrolytes 1,000 ml @ 100 mls/hr Q10H IV 03/03/20 15:13 04/02/20 15:12 03/04/20 11:35 Docusate Sodium (Colace) 100 mg THREE TIMES A DAY ORAL 03/03/20 18:00 04/02/20 12:59 03/04/20 08:26 Lorazepam (Ativan 2mg/ml 1ml) 2 mg Q1H PRN IV For Seizures 03/03/20 20:15 03/10/20 20:14 Metoprolol Tartrate (Lopressor) 12.5 mg Q12HR ORAL 03/03/20 21:00 06/01/20 20:59 03/04/20 08:28 Pantoprazole (Protonix) 40 mg EVERY 12 HOURS ORAL 03/03/20 21:00 04/02/20 20:59 03/04/20 08:27 Phosphorus (Phospha 250 Neutral) 500 mg THREE TIMES A DAY ORAL 03/03/20 18:00 04/02/20 12:59 03/04/20 08:27 Laboratory Tests 03/04/20 05:50: White Blood Count 9.4, Red Blood Count 4.24, Hemoglobin 13.7, Hematocrit 38.0, Mean Corpuscular Volume 89, Mean Corpuscular Hemoglobin 32.3H, Mean Corpuscular Hemoglobin Concent 36.1H, Red Cell Distribution Width 10.6L, Platelet Count 245 , Mean Platelet Volume 5.6L, Neutrophils (%) (Auto) 75.7H, Lymphocytes (%) (Auto ) 14.7L, Monocytes (%) (Auto) 8.7, Eosinophils (%) (Auto) 0.2, Basophils (%) ( Auto) 0.7, Sodium Level 138, Potassium Level 4.1, Chloride Level 105, Carbon Dioxide Level 22, Anion Gap 11, Blood Urea Nitrogen 4L, Creatinine 0.6, Estimat Glomerular Filtration Rate > 60, Glucose Level 135H, Calcium Level 8.7, Phosphorus Level 2.4L, Magnesium Level 2.1, Total Bilirubin 0.6, Aspartate Amino Transf (AST/SGOT) 19, Alanine Aminotransferase (ALT/SGPT) 20, Alkaline Phosphatase 65, C-Reactive Protein, Quantitative < 0.4, Pro-B-Type Natriuretic Peptide 171H, Total Protein 7.7, Albumin 3.9, Globulin 3.8, Albumin/Globulin Ratio 1.0, Thyroid Stimulating Hormone (TSH) 0.669, Free Thyroxine 1.11 Height (Feet): 5 Height (Inches): 4.00 Weight (Pounds): 138 General Appearance: no apparent distress Cardiovascular: normal rate Respiratory/Chest: lungs clear Abdomen: soft Babak Sands MD March 04, 2020 12:15
--- NOTE | 2020-03-04 15:30 | Consultation ---
DATE OF CONSULTATION: 03/03/2020 NOTE: POOR AUDIO. NEUROLOGICAL CONSULTATION CHIEF COMPLAINT: This is the first [facility] admission for this 24-year-old right-handed woman with a history of depression since 2016, on Zoloft. She was admitted with an overdose of 25 Zoloft tablets and two-thirds of glass of vodka on the day of admission. the patient took 25 tablets of 100 mg of Zoloft and probably two-thirds of glass of vodka. She then vomited 3 times. Fifteen minutes after that, she was brought to the hospital. Her chemistries today on 03/03/2020 were normal except for an elevated blood sugars as high as 166. Initial calcium was normal, but the phosphorus was low at 2.3. Magnesium was 1.6. Her sodium, potassium chloride, BUN, and creatinine were all normal. Liver function tests were normal with a high total protein. Toxicology screen revealed a serum alcohol of 33. The rest of the screen was negative. No SSRI level was ordered. CBC was normal with a normal platelet count except for a high white count of 11,000 and 14,000. Platelets were normal. After fluid intake, the patient's hematocrit fell to 36.6, which is slightly low. The patient had EKGs, which revealed sinus tachycardia, however, normal, possible left atrial enlargement, cannot rule out anterior infarct . An echocardiogram was normal except for mitral anulus and aortic root calcification and calcification of the aortic valve and thickened mitral valve leaflets with normal excursion. There is trace mitral regurgitation and tricuspid regurgitation. Ejection fraction was 70%. The patient was given IV magnesium as well as Ativan in the emergency room. She did see in the hospital. She was given IV fluid magnesium sulfate Lopressor phosphate. Her urinalysis is basically normal with slight elevation of glucose . The patient complains of headaches. She denies any previous history. She denies any fevers lethargic. . She denies any dysarthria, dysphagia, diplopia, blurred vision or hearing loss dizzy spells. She denies any neck or back pain. She denies any other suicidal attempts. There is no difficulty going to the bathroom. She feels wobbly when she walks. The nephew . ALLERGIES: She denies allergies . SOCIAL HISTORY: She does not smoke. No illegal drug use. FAMILY HISTORY: She does not know father. in good health. . PAST SURGICAL HISTORY: No surgeries. REVIEW OF SYSTEMS: Her appetite is decreased. The last weight was 125 pounds. PHYSICAL EXAMINATION: GENERAL: She is well developed, in no acute distress. VITAL SIGNS: Pulse is 124, , respirations 17, blood pressure is 114/60, . MENTAL STATUS EXAMINATION: . Affect is blunted. birthday 3/3 objects. Recent memory was 2/3 objects in 5 minutes. Intellect could not be tested. Orientation 03/04/2020, place she knew she was at [facility] third floor. The patient . Language function, spoken speech is full without paraphasias. Comprehension, repetition intact. She could spell world backwards and forwards was intact. CRANIAL NERVE EXAMINATION: CRANIAL NERVES II: Visual watson are intact to confrontation. CRANIAL NERVES III, IV AND : Extraocular motility was full with some slight saccadic . CRANIAL NERVE V: Facial and corneal sensation was intact to fine touch. Pterygoid strength is 5/5. CRANIAL NERVE VII: Facial strength is 5/5. CRANIAL NERVE VIII: Auditory acuity is intact. CRANIAL NERVES IX AND X: Cannot be tested. CRANIAL NERVES XI: Sternocleidomastoid strength is 5/5. CRANIAL NERVE XII: Tongue protrudes in the midline without fasciculations or atrophy. MUSCLE EXAMINATION: Muscle bulk and tone are normal. Strength is 5/5 proximally and distally. There is no asterixis. There is a very fine tremor in the fingers, very low . There is no myoclonus. Reflexes are +2 to 2.5 in the upper extremities, +2 at the knees, +2 at the ankles with downgoing toes on testing for Babinski response. COORDINATION: Dlosne-qj-afss, niwv-[id number] testing, rapid alternating movements are intact. GAIT AND STATION: Normal based gait. Heel-toe and tandem walk is normal. Romberg is negative. SENSORY EXAMINATION: Pinprick, perception, and fine touch were normal. IMPRESSION: The patient has a history of depression with Zoloft overdose. after overdose could be fairly benign, although she was at risk for serotonin syndrome and seizures and cardiac arrhythmias. She only has tachycardia at this point. We will place her on Ativan 2 mg IV p.r.n. seizures if she develops a seizure. Otherwise, she does not have to be treated neurologically at this time. to treat her. PLAN: 1. Ativan 2 mg IV q.1h. p.r.n. seizures. 2. I will speak to you about this case and management. Daniel Lane MD DR: Georgina JOB#: [id number] CC:
--- NOTE | 2020-03-04 15:40 | NUR ---
*-* INSURANCE *-* UPDATED CLINICALS HAVE BEEN FAXED TO: [facility] Ref#[id number] #[phone] fax#[phone] & [place] DEYANIRA CM:[place] F: [phone]
--- NOTE | 2020-03-04 16:00 | NUR ---
NURSE NOTES: Pt in stable condition. Provided discharge instructions and make sure pt will contact her primary MD and Psychiatrist to follow up in a week. Pt verbalized understanding. All belongings were accounted for. IV and ID band removed. Pt was escorted to downstair and picked up by her boyfriend.
--- NOTE | 2020-03-04 16:24 | Cardiac Electrophysiology PN ---
Assessment/Plan Assessment/Plan 1. Tachycardia due to sinus tachycardia with no evidence of atrial fibrillation. Heart rate was up to 160s due to drug overdose. Further evaluation by Psychiatry. Resolved. Echo EF 70% 3. History of depression. Subjective Subjective Comfortable. Transferred out of ICU yesterday. No CP.DC in progress Objective Last 24 Hour Vital Signs Date Time Temp Pulse Resp B/P (MAP) Pulse Ox O2 Delivery O2 Flow Rate FiO2 03/04/20 12:00 98.7 76 20 123/78 (93) 97 03/04/20 08:28 87 122/70 03/04/20 08:00 99.2 95 20 122/70 (87) 99 03/04/20 06:00 99.4 87 20 121/76 (91) 95 03/04/20 00:00 99.8 83 20 105/66 (79) 96 03/03/20 21:48 97 116/70 03/03/20 20:00 98.9 102 16 116/70 (85) 97 Intake and Output 03/03/20 03/04/20 19:00 07:00 Intake Total 2150 ml 1560 ml Balance 2150 ml 1560 ml Intake Oral 1050 ml 360 ml IV Total 1100 ml 1200 ml # Voids 9 7 Laboratory Tests Test 03/04/20 05:50 White Blood Count 9.4 K/UL (4.8-10.8) Red Blood Count 4.24 M/UL (4.20-5.40) Hemoglobin 13.7 G/DL (12.0-16.0) Hematocrit 38.0 % (37.0-47.0) Mean Corpuscular Volume 89 FL (80-99) Mean Corpuscular Hemoglobin 32.3 PG (27.0-31.0) H Mean Corpuscular Hemoglobin Concent 36.1 G/DL (32.0-36.0) H Red Cell Distribution Width 10.6 % (11.6-14.8) L Platelet Count 245 K/UL (150-450) Mean Platelet Volume 5.6 FL (6.5-10.1) L Neutrophils (%) (Auto) 75.7 % (45.0-75.0) H Lymphocytes (%) (Auto) 14.7 % (20.0-45.0) L Monocytes (%) (Auto) 8.7 % (1.0-10.0) Eosinophils (%) (Auto) 0.2 % (0.0-3.0) Basophils (%) (Auto) 0.7 % (0.0-2.0) Sodium Level 138 MMOL/L (136-145) Potassium Level 4.1 MMOL/L (3.5-5.1) Chloride Level 105 MMOL/L (98-107) Carbon Dioxide Level 22 MMOL/L (21-32) Anion Gap 11 mmol/L (5-15) Blood Urea Nitrogen 4 mg/dL (7-18) L Creatinine 0.6 MG/DL (0.55-1.30) Estimat Glomerular Filtration Rate > 60 mL/min (>60) Glucose Level 135 MG/DL (74-106) H Calcium Level 8.7 MG/DL (8.5-10.1) Phosphorus Level 2.4 MG/DL (2.5-4.9) L Magnesium Level 2.1 MG/DL (1.8-2.4) Total Bilirubin 0.6 MG/DL (0.2-1.0) Aspartate Amino Transf (AST/SGOT) 19 U/L (15-37) Alanine Aminotransferase (ALT/SGPT) 20 U/L (12-78) Alkaline Phosphatase 65 U/L (46-116) C-Reactive Protein, Quantitative < 0.4 mg/dL (0.00-0.90) Pro-B-Type Natriuretic Peptide 171 pg/mL (0-125) H Total Protein 7.7 G/DL (6.4-8.2) Albumin 3.9 G/DL (3.4-5.0) Globulin 3.8 g/dL Albumin/Globulin Ratio 1.0 (1.0-2.7) Thyroid Stimulating Hormone (TSH) 0.669 uiU/mL (0.358-3.740) Free Thyroxine 1.11 NG/DL (0.76-1.46) Objective HEAD AND NECK: no JVD. LUNGS: Clear. CARDIOVASCULAR: Tachycardic, S1 and S2, with no gallop or murmur. ABDOMEN: Soft. EXTREMITIES: No pitting edema. Jose De MD March 04, 2020 16:23
--- NOTE | 2020-03-05 13:46 | NUR ---
*-* NO DISCHARGE SUMMARY IN THE SYSTEM UNABLE TO FAX TO [employer] *-*
--- NOTE | 2020-03-05 14:25 | Discharge Summary ---
Discharge Summary Discharge Summary _ DATE OF ADMISSION: 03/03/2020 DATE OF DISCHARGE: 03/04/2020 DISCHARGED BY: Dr. Tobar REASON FOR ADMISSION: 24 years old female with past medical history of depression, brought by paramedics after reported overdose. Patient stated that she took approximately 25 pills of 100 mg Zoloft. Ingestion occurred approximately 1 hours prior to arrival to ED. Patient also reported drinking alcohol. She denied taking other medication. Patient was placed on 5150 hold by [employer]. Vital signs revealed tachycardia. Laboratory work-up revealed mild leukocytosis WBC 11, stable hemoglobin, hematocrit and platelet count. Stable electrolytes and renal parameters. Glucose 129. AST 36 , ALT 19. Serum alcohol 33. Serum salicylate and Tylenol negative. Urine toxicology screen was negative . Urine test was negative. EKG revealed sinus tachycardia. Magnesium 1.6. Phosphorus 2.3 Patient started on the IV fluids. Poison control was contacted for assistance with management. Patient had initially presented with tachycardia and later developed some muscle tremors . Patient received IV magnesium , Ativan , cyproheptadine and admitted for further management. CONSULTANTS: clin asst Dr. Pearson neurologist Dr. Lane pulmonary Dr. Michel drum sealer Dr. Sands psychiatrist [facility] COURSE: Patient admitted and continued on vigorous IV hydration. Neurologist seen and evaluated patient. Patient was at risk for serotonin syndrome , seizure disorder and cardiac arrhythmia. Patient however had a fairly benign presentation: she only had tachycardia . Neurologist recommended continue Ativan as needed for breakthrough seizure if she develops seizure . otherwise no need to be treated neurologically at this time. Per clin asst no evidence of atrial fibrillation. Sinus tachycardia was due to overdose. Echocardiogram revealed preserved ejection fraction of 70%. Sinus tachycardia resolved with low-dose Lopressor. Respiratory status remained stable. Pulse oximetry was stable on room air. Renal parameters and electrolytes were closely monitored. Electrolytes corrected as per drum sealer. Leukocytosis resolved, likely was reactive. No fevers. Psychiatrist seen and evaluated patient Per psychiatrist patient was not in danger to self or others. Patient to follow-up as outpatient with psychiatrist. Patient was stable for discharge. Due to rapid and unexpected improvement in patient condition, patient was discharged in 1 day. FINAL DIAGNOSES: Status post overdose on Zoloft Rule out serotonin syndrome Sinus tachycardia-resolved Electrolyte imbalance Leukocytosis -resolved Major depressive disorder Borderline personality DISCHARGE MEDICATIONS: See Medication Reconciliation list. DISCHARGE INSTRUCTIONS: Patient was discharged home. Patient to follow-up as outpatient with her psychiatrist. I have been assigned to dictate discharge summary for this account. I was not involved in the patient's management. Maci Wagoner NP March 05, 2020 14:25
--- NOTE | 2020-03-06 15:53 | NUR ---
*-* INSURANCE *-* DISCHARGE SUMMARY HAS BEEN FAXED TO: [facility] Ref#[id number] #[phone] fax#[phone] & KANNAN MCMILLAN CM:[place] F: [phone]
== END 2020-03-04 16:18 | disposition home or self-care (01) | DRG 812 ==
LOC: EDBD 23:58 → EMR 03-03 00:18 → ICU 03-03 03:39 → EDBEDREQ 03-03 03:46 → 3E 03-03 15:00
DX: T43.222A Poisoning by selective serotonin reuptake inhibitors, intentional self-harm, initial encounter (principal); E87.2 Acidosis; R00.0 Tachycardia, unspecified; F32.9 Major depressive disorder, single episode, unspecified; Y92.009 Unspecified place in unspecified non-institutional (private) residence as the place of occurrence of the external cause; K21.9 Gastro-esophageal reflux disease without esophagitis; E87.8 Other disorders of electrolyte and fluid balance, not elsewhere classified
CPT/HCPCS: 36415; 36600; 80053; 80307; 81003; 81025; 82803; 83735; 83880; 84100; 84439; 84443; 84550; 85007; 85025; 86140; 87081; 93306; 96361; 96365; 96375; 99285; C9399; G0480; J7030